=== PATIENT | male | born 1995 | race Caucasian/White ===

== ENCOUNTER → 2020-02-17 15:49 | Outpatient (CLI) | payer BC, SELFPAY ==
--- NOTE | ~2020-02-17 | XR_ITS ---
EXAMINATION: XR hand RT min 3V DATE: 02/17/2020 16:24 INDICATION: Right hand injury. TECHNIQUE: 3 views of right hand were obtained. COMPARISON: None. FINDINGS: Bone alignment is normal. No fracture. There are foci of chronic heterotopic ossification p almar to base of third middle phalanx. Joint spaces are well maintained. IMPRESSION: 1. No acute fracture. Reviewed, dictated and finalized at location A. IMPRESSION: 1. No acute fracture.
== END ==
PROVIDERS: PCP Family Medicine; Visit Provider Nurse Practitioner
DX: S69.90XA Unspecified injury of unspecified wrist, hand and finger(s), initial encounter (principal)
CPT/HCPCS: 73130

== ENCOUNTER 2020-09-07 10:54 | Outpatient (CLI) | payer OTHER, BC, SELFPAY ==
--- NOTE | ~2020-09-07 | XR_ITS ---
EXAMINATION: XR ribs RT 2V w CXR 2V EXAM DATE: 09/07/2020 11:37 INDICATION: Mid To Rt Side Back Pain After Lifting Pain For 2 Weeks. TECHNIQUE: Frontal projection of the upper right ribs, frontal projection of the lower right ribs, ob lique projection of the right ribs, frontal and lateral chest x-ray(s) for interpretation. There is no prior study for comparison. FINDINGS: There are no displaced acute right rib fractures identified. There is no soft tissue abno rmality seen. No confluent consolidation, pneumothorax or pleural effusion suspected. Cardiomediastin al silhouette is normal. IMPRESSION: Normal chest x-ray, right rib exam. Reviewed, dictated and finalized at location A.
--- NOTE | ~2020-09-07 | XR_ITS ---
EXAMINATION: XR thoracic spine 2V EXAM DATE: 09/07/2020 11:37 INDICATION: Dorsalgia. TECHNIQUE: Frontal and lateral projections of the thoracic spine as well as lateral swimmers projecti on of the upper thoracic spine for interpretation. There is no prior study for comparison. FINDINGS: The vertebral bodies are aligned in the AP dimension. Vertebral body and disc heights are well-maintained. There are no acute fractures identified. There are no bony erosions identified. Para spinal soft tissue is unremarkable. IMPRESSION: Unremarkable thoracic spine exam. Reviewed, dictated and finalized at location A.
== END 2020-09-07 10:55 | disposition home or self-care (01) ==
PROVIDERS: PCP Family Medicine; Visit Provider Family Medicine
DX: M54.9 Dorsalgia, unspecified (principal); R07.81 Pleurodynia
CPT/HCPCS: 71046; 71100; 72070